=== PATIENT | female | born 1970 | race Caucasian/White ===

== ENCOUNTER 2016-11-28 15:56 | Emergency (ER) | payer OTHER ==
--- NOTE | 2016-11-28 17:09 | ED ORDER SUMMARY ---
..... Patient: SHERYL AVERY OrderSheet [facility] VisitID: [id number] [address] [place] [address] 46y, F Registration Date/Time: 11/28/2016 ORDER SHEET Weight: 60.7 kg Allergies: Vicodin GENERAL ORDERS: MEDICATION ORDERS: Vistaril IM 50 mg (NOW, Do not administer intravenously) (16:13 11/28/2016 Daryn Venegas) (16:29 EBsourav) IV FLUIDS: IV NS : initial bolus none -, then 1000 mL/hr for X1 (NOW) (16:12 11/28/2016 Daryn Venegas) (16:29 Matteo) Reglan IV 10 mg (NOW) (16:12 11/28/2016 Daryn Venegas) (16:29 Matteo) ORDER SHEET NOTES: [Electronically signed by Fabiola Grover (17:06 11/28/2016)] [Electronically signed by Alexander Macias Dr. (17:09 11/28/2016)] [Electronically locked/signed by Fabiola Grover (17:06 11/28/2016)]
--- NOTE | 2016-11-28 17:09 | ED MAR SUMMARY ---
..... Medication Administration Record [facility] [address] [place] [address] Patient: SHERYL AVERY Visit ID: [id number] 46y, F Weight: 60.7 kg Height/Length: 64 in BMI: 23 ALLERGIES: Vicodin Start 16:11/28/2016 Fabiola Grover, Medication Administered: IV NS (SALINE), Dose: IV Fluids, Bolus: 1000 mL wide open, Dispensed: 1000 mL bag, Site: #1 left AC. Medication Ordered: IV NS : initial bolus none -, then 1000 mL/hr for X1 (NOW). Given :11/28/2016 Fabiola Grover, Medication Administered: REGLAN [IVP] (METOCLOPRAMIDE HCL), Dose: 10 mg IVP over 1 minute(s), Site: #1 left AC. Medication Ordered: Reglan IV 10 mg (NOW). Given :11/28/2016 Fabiola Grover, Medication Administered: VISTARIL [IM] (HYDROXYZINE HCL), Dose: 50 mg IM. Medication Ordered: Vistaril IM 50 mg (NOW, Do not administer intravenously).
--- NOTE | 2016-11-28 17:09 | ED MED RECONCILIATION SUMMARY ---
Patient: SHERYL AVERY Medication Reconciliation Report [facility] VisitID: [id number] [address] [place] [address] 46y, F Registration Date/Time: 11/28/2016 Weight: 60.7 kg Height/Length: 64 in. BMI: 23.0 ALLERGIES: Vicodin The patient's Home Medications are listed below: NONE. The source(s) of the original Home Medication information: Not obtained. The following Medications were given to the patient in the Emergency Department: Reglan [IVP] IVP 10 mg, administered: 11/28/2016 4:29:00 PM IV NS IV Fluids bolus 1000 mL wide open, administered: 11/28/2016 4:29:00 PM Vistaril [IM] IM 50 mg, administered: 11/28/2016 4:29:00 PM The following Medications were prescribed to the patient: None.
--- NOTE | 2016-11-28 17:09 | ED MED RECONCILIATION SUMMARY ---
Patient: SHERYL AVERY Medication Reconciliation Report [facility] VisitID: [id number] [address] [place] [address] 46y, F Registration Date/Time: 11/28/2016 Weight: 60.7 kg Height/Length: 64 in. BMI: 23.0 ALLERGIES: Vicodin The patient's Home Medications are listed below: NONE. The source(s) of the original Home Medication information: Not obtained. The following Medications were given to the patient in the Emergency Department: Reglan [IVP] IVP 10 mg, administered: 11/28/2016 4:29:00 PM IV NS IV Fluids bolus 1000 mL wide open, administered: 11/28/2016 4:29:00 PM Vistaril [IM] IM 50 mg, administered: 11/28/2016 4:29:00 PM The following Medications were prescribed to the patient: None.
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
--- NOTE | 2016-11-28 17:09 | ED DISCHARGE INSTRUCTIONS ---
Patient: SHERYL AVERY Timym General Instructions [facility] VisitID: [id number] [address] [place] [address] 46y, F Registration Date/Time: 11/28/2016 Narcotic withdrawal (Electronically signed by Alexander Macias Dr. 11/28/2016 17:09)
--- NOTE | 2016-11-28 17:09 | ED ORDER SUMMARY ---
..... Patient: SHERYL AVERY OrderSheet [facility] VisitID: [id number] [address] [place] [address] 46y, F Registration Date/Time: 11/28/2016 ORDER SHEET Weight: 60.7 kg Allergies: Vicodin GENERAL ORDERS: MEDICATION ORDERS: Vistaril IM 50 mg (NOW, Do not administer intravenously) (16:13 11/28/2016 Daryn Venegas) (16:29 EBsourav) IV FLUIDS: IV NS : initial bolus none -, then 1000 mL/hr for X1 (NOW) (16:12 11/28/2016 Daryn Venegas) (16:29 Matteo) Reglan IV 10 mg (NOW) (16:12 11/28/2016 Daryn Venegas) (16:29 Matteo) ORDER SHEET NOTES: [Electronically signed by Fabiola Grover (17:06 11/28/2016)] [Electronically signed by Alexander Macias Dr. (17:09 11/28/2016)] [Electronically locked/signed by Fabiola Grover (17:06 11/28/2016)]
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
--- NOTE | 2016-11-28 17:09 | ED MAR SUMMARY ---
..... Medication Administration Record [facility] [address] [place] [address] Patient: SHERYL AVERY Visit ID: [id number] 46y, F Weight: 60.7 kg Height/Length: 64 in BMI: 23 ALLERGIES: Vicodin Start 16:11/28/2016 Fabiola Grover, Medication Administered: IV NS (SALINE), Dose: IV Fluids, Bolus: 1000 mL wide open, Dispensed: 1000 mL bag, Site: #1 left AC. Medication Ordered: IV NS : initial bolus none -, then 1000 mL/hr for X1 (NOW). Given :11/28/2016 Fabiola Grover, Medication Administered: REGLAN [IVP] (METOCLOPRAMIDE HCL), Dose: 10 mg IVP over 1 minute(s), Site: #1 left AC. Medication Ordered: Reglan IV 10 mg (NOW). Given :11/28/2016 Fabiola Grover, Medication Administered: VISTARIL [IM] (HYDROXYZINE HCL), Dose: 50 mg IM. Medication Ordered: Vistaril IM 50 mg (NOW, Do not administer intravenously).
--- NOTE | 2016-11-28 17:09 | ED DISCHARGE INSTRUCTIONS ---
Patient: SHERYL AVERY Timmy General Instructions [facility] VisitID: [id number] [address] [place] [address] 46y, F Registration Date/Time: 11/28/2016 Narcotic withdrawal (Electronically signed by Alexander Macias Dr. 11/28/2016 17:09)
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
== END 2016-11-28 17:00 | disposition home or self-care (01) ==
LOC: ED SRH 15:56
DX: F11.23 Opioid dependence with withdrawal (principal); R11.2 Nausea with vomiting, unspecified; Z90.710 Acquired absence of both cervix and uterus; Z88.5 Allergy status to narcotic agent

== ENCOUNTER 2017-01-07 11:52 | Emergency (ER) | payer OTHER ==
--- NOTE | 2017-01-07 14:20 | ED ORDER SUMMARY ---
..... Patient: SHERYL AVERY OrderSheet [facility] VisitID: [id number] [place] [address] 46y, F Registration Date/Time: 01/07/2017 ORDER SHEET Weight: 61.2 kg (stated) Allergies: None GENERAL ORDERS: CBC w Diff Urgent (13:01/07/2017 Jesse Venegas) (Ack 13:14 Quinton) (13:27 SStone R.N.) CMP Urgent (:01/07/2017 Jesse Venegas) (Ack 13:14 Quinton) (13:27 SStone R.N.) UA-Culture if indicated Urgent (:01/07/2017 Jesse Venegas) (Ack 13:14 Quinton) (13:27 SStone R.N.) Lipase Urgent (:01/07/2017 Jesse Venegas) (Ack 13:14 Quinton) (13:27 SStone R.N.) Pulse oximeter (13:01/07/2017 Jesse Venegas) (13:27 SStone R.N.) US Abdomen Limited (No) Urgent (13:01/07/2017 Jesse Venegas) (Ack 13:14 Quinton) Serum Quantitative Urgent (13:01/07/2017 Jesse Venegas) (Ack 13:14 Quinton) (13:27 SStone R.N.) MEDICATION ORDERS: GI Cocktail WHITE PO 30 mL (NOW) (13:01/07/2017 Jesse Venegas) (Ack 13:11 SStone R.N.) (13:26 SStone R.N.) IV FLUIDS: IV NS : initial bolus 1000 mL (1000 mL/hr), then none - for X1 (NOW) (13:01/07/2017 Jesse Venegas) (Ack 13:11 SStone R.N.) (13:27 SStone R.N.) Zofran IV 4 mg (NOW) (13:01/07/2017 Jesse Venegas) (Ack 13:11 SStone R.N.) (13:27 SStone R.N.) ORDER SHEET NOTES: [Electronically signed by Bianca Simpson R.N. (14:35 01/07/2017)] [Electronically signed by Ebenezer Tipton Dr. (10:34 01/12/2017)] [Electronically locked/signed by Bianca Simpson R.N. (14:35 01/07/2017)]
--- NOTE | 2017-01-07 14:20 | ED ORDER SUMMARY ---
..... Patient: SHERYL AVERY OrderSheet [facility] VisitID: [id number] [place] [address] 46y, F Registration Date/Time: 01/07/2017 ORDER SHEET Weight: 61.2 kg (stated) Allergies: None GENERAL ORDERS: CBC w Diff Urgent (13:01/07/2017 Jesse Venegas) (Ack 13:14 Quinton) (13:27 SStone R.N.) CMP Urgent (:01/07/2017 Jesse Venegas) (Ack 13:14 Quinton) (13:27 SStone R.N.) UA-Culture if indicated Urgent (:01/07/2017 Jesse Venegas) (Ack 13:14 Quinton) (13:27 SStone R.N.) Lipase Urgent (:01/07/2017 Jesse Venegas) (Ack 13:14 Quinton) (13:27 SStone R.N.) Pulse oximeter (13:01/07/2017 Jesse Venegas) (13:27 SStone R.N.) US Abdomen Limited (No) Urgent (13:01/07/2017 Jesse Venegas) (Ack 13:14 Quinton) Serum Quantitative Urgent (13:01/07/2017 Jesse Venegas) (Ack 13:14 Quinton) (13:27 SStone R.N.) MEDICATION ORDERS: GI Cocktail WHITE PO 30 mL (NOW) (13:01/07/2017 Jesse Venegas) (Ack 13:11 SStone R.N.) (13:26 SStone R.N.) IV FLUIDS: IV NS : initial bolus 1000 mL (1000 mL/hr), then none - for X1 (NOW) (13:01/07/2017 Jesse Venegas) (Ack 13:11 SStone R.N.) (13:27 SStone R.N.) Zofran IV 4 mg (NOW) (13:01/07/2017 Jesse Venegas) (Ack 13:11 SStone R.N.) (13:27 SStone R.N.) ORDER SHEET NOTES: [Electronically signed by Bianca Simpson R.N. (14:35 01/07/2017)] [Electronically signed by Ebenezer Tipton Dr. (10:34 01/12/2017)] [Electronically locked/signed by Bianca Simpson R.N. (14:35 01/07/2017)]
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
--- NOTE | 2017-01-07 14:20 | ED CLINICAL REPORT ---
Clinical Report - Physicians/Mid Levels [facility] [address] [place] [address] 01/07/2017 11:53 Patient: SHERYL AVERY Time Seen: 1307. Arrived- By private vehicle. Historian- patient. HISTORY OF PRESENT ILLNESS Chief Complaint: ABDOMINAL PAIN. This started past 4 days and is still present (staying the same). It was gradual in onset and has been constant and waxing/waning but is not gone now. At its maximum, severity described as severe. When seen in the E.D., severity described as severe. Modifying factors- (better with heroin worse without it). It is described as sharp and cramping. No radiation. It is described as located in the epigastric area. The patient has had nausea, loss of appetite, vomiting and diarrhea. No additional abdominal pain. (reports abscess to the left face for the past few days. hx of scalp infection. reports being off antibiotics for the past month.). No recent travel. Similar symptoms previously: None. Recent medical care: Not recently seen/assessed. REVIEW OF SYSTEMS No constipation, black stools, hematemesis or bloody stools. She has had skin rash. All systems otherwise negative, except as recorded above. PAST HISTORY See nurses notes. Medications: None. Allergies: None. SOCIAL HISTORY Smoker- current status unknown. Alcohol use. History of drug use. No recent travel. Is a local resident. ADDITIONAL NOTES The nursing notes have been reviewed. PHYSICAL EXAM Vital Signs: 01/07/2017 12:03 BP: 118/87. HR: 88. RR: 18. O2 saturation: 100%. Temp: 98.7 F. Pain level now: 7/10. Blood pressure normal. Oxygen saturation normal. Appearance: Alert. Oriented X3. No acute distress. Eyes: Pupils equal, round and reactive to light. Eyes normal inspection. ENT: Ears normal. Nose normal. Pharynx normal. Neck: Normal inspection. Neck supple. CVS: Normal heart rate and rhythm. Heart sounds normal. Pulses normal. Respiratory: No respiratory distress. Breath sounds normal. Chest nontender. Abdomen: Soft and nontender. No mass. (Hyperactive bowel sounds). Back: Normal inspection. Skin: Skin warm and dry. Normal skin color. No rash. Normal skin turgor. (except left face with small 1.5 cm area off cellulitis and indruation. no fluctuance. does not appear to be I & D easily.). Extremities: Extremities exhibit normal ROM. No lower extremity edema. LABS, X-RAYS, AND EKG Laboratory Tests: Serum Qualitative: (ROSI: 01/07/2017 13:20) ( [facility] 01/07[facility] 13:52) Final results Test Result Flag Units (Reference) , SERUM NEGATIVE CBC w Diff: (ROSI: 01/07/2017 13:20) ( [facility] 01/07/2017 13:32) Final results Test Result Flag Units (Reference) WHITE BLOOD COUNT 7.6 K/uL (4.5-11.5) RED BLOOD COUNT 4.90 M/uL (4.00-5.20) HEMOGLOBIN 14.1 gm/dL (12.0-16.0) HEMATOCRIT 42.5 % (36.0-46.0) MEAN CELL VOLUME 87 fL (80-100) MEAN CORPUSCULAR HGB 29 pg (26-34) MEAN CORPUSCULAR HGB CONC 33 g/dL (31-37) RED CELL DISTRIBUTION WIDTH 13.5 % (11.6-14.8) PLATELET COUNT 336 K/uL (150-400) NEUTROPHIL % 58.6 % (50-75) LYMPH % 33.0 % (25-40) MONO % 5.8 % (3-14) EOSINOPHIL % 1.9 % (0-4) BASOPHIL % 0.7 % (0-2) CMP: (ROSI: 01/07/2017 13:20) ( [facility] 01/07/2017 14:00) Final results Test Result Flag Units (Reference) GLUCOSE 83 mg/dL (70-110) BUN 7 mg/dL (7-18) CREATININE 0.8 mg/dL (0.6-1.3) Estimated GFR >60 mL/min This is a corrected result 01/07/17 1400:Estimated GFR previously reported as: 24.05 mL/min Estimated GFR- >60 mL/min This is a corrected result 01/07/17 1400:eGFR- Am previously reported as: 29.15mL/minNote: Persistent reduction over 3 months in eGFR<60 mL/min/1.73 m2 defines CKD. Patients with eGFR values>=60 mL/min/1.73 m2 may also have CKD if evidence ofpersistent proteinuria. Additional information may be foundat www.kidney.org. SODIUM 140 mmol/L (136-145) POTASSIUM 3.9 mmol/L (3.5-5.1) CHLORIDE 104 mmol/L (98-107) CARBON DIOXIDE 28 mmol/L (21-32) CALCIUM 9.2 mg/dL (8.5-10.1) TOTAL PROTEIN 7.5 g/dL (6.4-8.2) ALBUMIN 3.7 g/dL (3.3-5.0) BILIRUBIN, TOTAL 0.3 mg/dL (0.0-1.0) ALKALINE PHOSPHATASE 72 U/L (46-116) AST (SGOT) 10 L U/L (15-37) ALT (SGPT) 13 U/L (12-78) LIPASE 120 U/L (73-393) . PROGRESS AND PROCEDURES Course of Care: the patient is a pleasant 46-year-old female presenting for evaluation of abdominal pain. Appears to be related to opiate withdrawal. The patient is a nontender examination and hyperactive bowel sounds. Patient's symptom otology is also consistent with opioid withdrawal. Nonetheless, patient will be evaluated laboratory studies including urinalysis, chemistry profile, and liver function tests. Patient is agreeable to treatment plan. Patient will likely need treatment for the small abscess that still located on the right lower face. No evidence of deep or more sinister type of infection at this time. Appears to be a sequela of IV heroin use as well. Because of the location of the abscess, do not feel it would be kearney to drain the abscess at bedside secondary to cosmetic reasons. Recommended warm compresses with antibiotics and spontaneous drainage. The patient's laboratory studies were somewhat delayed from laboratory. Patient's creatinine was delayed and needed to be repeated several times because of the abnormal levels. I spoke to lab personally about this. They're currently working on the patient's creatinine. The patient's blood pressure citizen noted for the findings above. No acute abnormalities noted. Patient is resting in bed and in no acute distress. Symptoms had improved with the medications provided. Had discussion with patient in regards to opioid withdrawal. Encouraged patient to continue with the detox from opioids and expressed my concern with the patient in regards to starting any other illicit substance as a substitute for heroin. Recommended patient come clean from all of the illicit substances and avoid prescriptions. Patient reports that she does not want to be done anything else. The patient appears to be in good spirits and is motivated. Patient is a good chance of being clean and sober. Discussed the patient workup here in the emergency department, home care, follow-up, and return precautions. All questions have been answered. The patient expressed understanding of these instructions and was agreeable to them. CLINICAL IMPRESSION Acute epigastric abdominal pain. (acute). Vomiting with nausea. Diarrhea Facial cellulitis (right cheeck). Single superficial abscess to the face (right). INSTRUCTIONS Warnings: GENERAL WARNINGS: Return or contact your physician immediately if your condition worsens or changes unexpectedly, if not improving as expected, or if other problems arise. SPECIFICALLY, return if you develop pain, fever, vomiting, the inability to keep fluids down, blood in vomitus, blood in diarrhea, fainting or lightheadedness. Your Current Medications: CONTINUE TAKING THE FOLLOWING MEDICATIONS: None*. Prescription Medications: Zofran (orally disintegrating tablets) 4 mg: take 1 orally every 8 hours as needed for nausea and vomiting. Dispense ten (10). No refill. Substitution is permissible. (daily dose =) Pepcid 20 mg: take 1 orally every 12 hours as needed for indigestion, upset stomach or heartburn. Dispense twenty (20). No refills. Substitution is permissible. Cephalexin 500 mg: take 1 capsule orally every 8 hours for 10 days. No refill. Bactrim DS: take 1 tablet orally every 12 hours for 10 days. No refill. Substitution is not permissible. (disp 20 tabs) Follow-up: Return to the emergency department as needed. Follow up with your doctor in three days. Reason for referral: recheck today's concerns. Summary of care provided to patient via paper. Screening today revealed the patient's blood pressure to be in the normal range. The patient should follow up with a primary care provider for blood pressure management. Understanding of the discharge instructions verbalized by patient. (Electronically signed by Ebenezer Tipton Dr. 01/12/2017 10:34)
--- NOTE | 2017-01-07 14:42 | DIAGNOSTIC IMAGING REPORT ---
PROCEDURE: US ABDOMEN ULTRASOUND-LIMITED INDICATION: EPIGASTRIC ABDOMINAL PAIN TECHNIQUE: Purvis scale and color Doppler sonographic images of the abdomen were obtained without comparison. COMPARISON: None. FINDINGS: The liver is normal in size, contour, and echotexture. No mass or intrahepatic biliary dilatation. The gallbladder is normal without stones or sludge. The wall is normal thickness measuring 1.7 mm No pericholecystic fluid or Hood sign. The extrahepatic common duct is normal measuring 4.6 mm The visualized pancreas is normal without ductal dilatation or peripancreatic fluid collection. The abdominal aorta is normal in its course and caliber. The retrohepatic inferior vena cava is patent. There is appropriate hepatopetal flow in the portal vein. The right kidney measures in length. There is no perihepatic or perisplenic ascites. IMPRESSION: 1. Normal abdominal ultrasound.
--- NOTE | 2017-01-12 10:35 | ED MAR SUMMARY ---
..... Medication Administration Record [facility] [address] [place] [address] Patient: SHERYL AVERY Visit ID: [id number] [id number], F Weight: 61.2 kg Height/Length: 64 in BMI: 23.2 ALLERGIES: None Given 13:17 01/07/2017 Bianca Simpson R.N. Medication Administered: ZOFRAN [IVP] (ONDANSETRON HCL), Dose: 4 mg IVP over 2 minute(s), Site: #1 left AC. Medication Ordered: Zofran IV 4 mg (NOW). Given 13:26 01/07/2017 Bianca Simpson R.N. Medication Administered: GI COCKTAIL WHITE [PO] (SIMETHICONE), Dose: 50 mL Oral Suspension PO. Medication Ordered: GI Cocktail WHITE PO 30 mL (NOW). Start 13:27 01/07/2017 Bianca Simpson R.N. Medication Administered: IV NS (SALINE), Dose: IV Fluids over 1 hour(s), Rate: 1000 mL/hr, Bolus: 1000 mL wide open, Dispensed: 1000 mL bag, Site: #1 left AC. Medication Ordered: IV NS : initial bolus 1000 mL (1000 mL/hr), then none - for X1 (NOW).
--- NOTE | 2017-01-12 10:35 | ED DISCHARGE INSTRUCTIONS ---
Patient: SHERYL AVERY General Instructions Merged With [facility] VisitID: [id number] [place] [address] 46y, F Registration Date/Time: 01/07/2017 Acute epigastric abdominal pain. (acute). Vomiting with nausea. Diarrhea Facial cellulitis (right cheeck). Single superficial abscess to the face (right). INSTRUCTIONS Warnings: GENERAL WARNINGS: Return or contact your physician immediately if your condition worsens or changes unexpectedly, if not improving as expected, or if other problems arise. SPECIFICALLY, return if you develop pain, fever, vomiting, the inability to keep fluids down, blood in vomitus, blood in diarrhea, fainting or lightheadedness. Your Current Medications: CONTINUE TAKING THE FOLLOWING MEDICATIONS: None*. Prescription Medications: Zofran (orally disintegrating tablets) 4 mg: take 1 orally every 8 hours as needed for nausea and vomiting. Dispense ten (10). No refill. Substitution is permissible. (daily dose =) Pepcid 20 mg: take 1 orally every 12 hours as needed for indigestion, upset stomach or heartburn. Dispense twenty (20). No refills. Substitution is permissible. Cephalexin 500 mg: take 1 capsule orally every 8 hours for 10 days. No refill. Bactrim DS: take 1 tablet orally every 12 hours for 10 days. No refill. Substitution is not permissible. (disp 20 tabs) Follow-up: Return to the emergency department as needed. Follow up with your doctor in three days. Reason for referral: recheck today's concerns. Summary of care provided to patient via paper. Screening today revealed the patient's blood pressure to be in the normal range. The patient should follow up with a primary care provider for blood pressure management. Understanding of the discharge instructions verbalized by patient. ADDITIONAL INFORMATION Abdominal Pain, Unknown Cause (Female) The exact cause of your abdominal (stomach) pain is not certain. This does not mean that this is something to worry about, or the right tests were not done. Everyone likes to know the exact cause of the problem, but sometimes with abdominal pain, there is no clear-cut cause, and this could be a good thing. The good news is that your symptoms can be treated, and you will feel better. Your condition does not seem serious now; however, sometimes the signs of a serious problem may take more time to appear. For this reason,it is important for you to watch for any new symptoms, problems,or worsening of your condition. Over the next few days, the abdominal pain may come and go, or be continuous. Other common symptoms can include nausea and vomiting. Sometimes it can be difficult to tell if you feel nauseous, you may just feel bad and not associate that feeling with nausea. Constipation, diarrhea, and a fever may go along with the pain. The pain may continue even if treated correctly over the following days. Depending on how things go, sometimes the cause can become clear and may require further or different treatment. Additional evaluations, medications, or tests may be needed. Home care Your health care provider may prescribe medications for pain, symptoms, or an infection. Follow the health care provider's instructions for taking these medications. General care Rest until your next exam. No strenuous activities. Try to find positions that ease discomfort. A small pillow placed on the abdomen may help relieve pain. Something warm on your abdomen (such as a heating pad) may help, but be careful not to burn yourself. Diet Do not force yourself to eat, especially if having cramps, vomiting, or diarrhea. Water is important so you do not get dehydrated. Soup may also be good. Sports drinks may also help, especially if they are not too acidic. Make sure you don't drink sugary drinks as this can make things worse. Take liquids in small amounts. Do not guzzle them. Caffeine sometimes makes the pain and cramping worse. Avoid dairy products if you have vomiting or diarrhea. Don't eat large amounts at a time. Wait a few minutes between bites. Eat a diet low in fiber (called a low-residue diet). Foods allowed include refined breads, white rice, fruit and vegetable juices without pulp, tender meats. These foods will pass more easily through the intestine. Avoid whole-grain foods, whole fruits and vegetables, meats, seeds and nuts, fried or fatty foods, dairy, alcohol and spicy foods until your symptoms go away. Follow-up care Follow up with your health care provider as instructed, or if your pain does not begin to improve in the next 24 hours. When to seek medical care Seek prompt medical care if any of the following occur: Pain gets worse or moves to the right lower abdomen New or worsening vomiting or diarrhea Swelling of the abdomen Unable to pass stool for more than three days Fever of 100.4F (38C) or higher, or as directed by your healthcare provider. Blood in vomit or bowel movements (dark red or black color) Jaundice (yellow color of eyes and skin) Weakness, dizziness Chest, arm, back, neck or jaw pain Unexpected vaginal bleeding or missed period Call 911 Call emergency services if any of the following occur: Trouble breathing Confusion Fainting or loss of consciousness Rapid heart rate Seizure Vomiting [6Yr-Adult] Vomiting is a common symptom that may be due to different causes. These include gastroenteritis ("stomach flu"), food poisoning and gastritis. There are other more serious causes of vomiting which may be hard to diagnose early in the illness. Therefore, it is important to watch for the warning signs listed below. The main danger from repeated vomiting is dehydration. This is due to excess loss of water and minerals from the body. When this occurs, body fluids must be replaced. Home Care: If symptoms are severe, rest at home for the next 24 hours. You may use acetaminophen (Tylenol) or ibuprofen (Motrin, Advil) to control fever, unless another medicine was prescribed. [NOTE : If you have chronic liver or kidney disease or ever had a stomach ulcer or GI bleeding, talk with your doctor before using these medicines.] (Aspirin should never be used in anyone under 18 years of age who is ill with a fever. It may cause severe liver damage.) Avoid tobacco and alcohol use, which may worsen your symptoms. If medicines for vomiting were prescribed, take as directed. Once vomiting stops, then follow these guidelines: During The First 12-24 Hours follow the diet below: FRUIT JUICES: Apple, grape juice, clear fruit drinks, and electrolyte replacement drinks. BEVERAGES: Soft drinks without caffeine; mineral water (plain or flavored), decaffeinated tea and coffee. SOUPS: Clear broth, consomm and bouillon DESSERTS: Plain gelatin, popsicles and fruit juice bars. As you feel better, you may add 6-8 ounces of yogurt per day. During The Next 24 Hours you may add the following to the above: Hot cereal, plain toast, bread, rolls, crackers Plain noodles, rice, mashed potatoes, chicken noodle or rice soup Unsweetened canned fruit (avoid pineapple), bananas Limit caffeine and chocolate. No spices or seasonings except salt. During The Next 24 Hours Gradually resume a normal diet, as you feel better and your symptoms lessen. Follow Up with your doctor as advised if you are not improving over the next 2-3 days. Get Prompt Medical Attention if any of the following occur: Constant right-sided lower abdominal pain or increasing general abdominal pain Continued vomiting (unable to keep liquids down) for 24 hours Frequent diarrhea (more than 5 times a day); blood (red or black color) or mucus in diarrhea Reduced urine output or extreme thirst Weakness, dizziness or fainting Unusually drowsy or confused Fever of 100.4F (38C) oral or higher, not better with fever medication Yellow color of the eyes or skin Diarrhea, Uncertain Cause (Adult, Report Pending) Diarrhea has several possible causes. Commonstomach fluis caused by a virus. Food poisoning, bacteria or parasites are other causes for diarrhea. Only diarrhea caused by bacteria or parasites requires treatment with an antibiotic. Diarrhea from a virus or food poisoning improves with simple home treatment. A stool sample is needed to make the diagnosis of an infection with bacteria or parasites. Up to three stool specimens may be required to diagnose This may take up to two days to get the result. It may be necessary to wait until the stool test is complete to make the diagnosis and select the best antibiotic to prescribe. Home Care: If symptoms are severe, rest at home for the next 24 hours or until you are feeling better. You may use acetaminophen (Tylenol) or ibuprofen (Motrin, Advil) to control fever, unless another medicine was prescribed. [NOTE: If you have chronic liver or kidney disease or ever had a stomach ulcer or GI bleeding, talk with your doctor before using these medicines.] (Aspirin should never be used in anyone under 18 years of age who is ill with a fever. It may cause severe liver damage.) Avoid tobacco, caffeine and alcohol, which may worsen your symptoms. If anti-diarrhea medicine was prescribed, take this only as directed. Sometimes anti-diarrhea medicine can make your condition worse if the cause is an infectious diarrhea. Therefore, anti-diarrhea medicine should not be taken for this condition unless advised by your doctor. During The First 12-24 Hours follow the diet below: BEVERAGES: Sport drinks like Gatorade, soft drinks without caffeine; jackeline tova, mineral water (plain or flavored), decaffeinated tea and coffee. SOUPS: Clear broth, consomm and bouillon DESSERTS: Plain gelatin (Jell-O), popsicles and fruit juice bars. During The Next 24 Hours you may add the following to the above: Hot cereal, plain toast, bread, rolls, crackers Plain noodles, rice, mashed potatoes, chicken noodle or rice soup Unsweetened canned fruit (avoid pineapple), bananas Limit fat intake to less than 15 grams per day by avoiding margarine, butter, oils, mayonnaise, sauces, gravies, fried foods, peanut butter, meat, poultry and fish. Limit fiber; avoid raw or cooked vegetables, fresh fruits (except bananas) and bran cereals. Limit caffeine and chocolate. No spices or seasonings except salt. During The Next 24 Hours Gradually resume a normal diet, as you feel better and your symptoms lessen. Follow Up with your doctor or as advised if you are not improving over the next two days. If you were asked to bring a specimen from home, bring the sample on the day of collection. You may call in 2 days (or as directed) for the results. Get Prompt Medical Attention if any of the following occur: Increasing abdominal pain or constant lower right abdominal pain Continued vomiting (unable to keep liquids down) Frequent diarrhea (more than 5 times a day) Blood in vomit or stool (black or red color) Reduced oral intake Dark urine, reduced urine output Weakness, dizziness, fainting Drowsiness, confusion, stiff neck or seizure Fever of 100.4F (38C) oral or higher, not better with fever medication New rash Abscess (Antibiotic Treatment Only) An abscess (sometimes called a boil) occurs when bacteria get trapped under the skin and begin to grow. Pus forms inside the abscess as the body responds to the bacteria. An abscess can occur with an insect bite, ingrown hair, blocked oil gland, pimple, cyst, or puncture wound. In the early stages, redness and tenderness are the only symptoms. Sometimes, this stage can be treated with antibiotics alone. If the abscess does not respond to antibiotic treatment, it will need to be drained with a small cut, under local anesthesia. Home care The following will help you care for your abscess at home: Soak the wound in hot water or apply hot packs (small towel soaked in hot water) to the area for 20 minutes at a time. Do this three to four times a day. Apply antibiotic cream or ointment onto the skin 3-4 times a day, unless something else was prescribed. Some ointments include an antibiotic plus a local pain reliever. If your doctor prescribed antibiotics, do not stop taking this medication until you have finished the prescribed course or the doctor tells you to stop. You may use an [id number] pain medication to control pain, unless another pain medicine was prescribed. If you have chronic liver or kidney disease or ever had a stomach ulcer or GI bleeding, talk with your doctor before using these any of these. Follow-up care Follow up with your health care provider as advised by our staff. Look at your wound each day for the signs of worsening infection listed below. When to seek medical care Get prompt medical attention if any of the following occur: An increase in redness or swelling Red streaks in the skin leading away from the abscess An increase in local pain or swelling Fever of 100.4F (38C) or higher, or as directed by your health care provider Pus or fluid coming from the abscess Cellulitis You have an infection of the skin known as cellulitis. This usually starts with a scrape, cut, insect bite, blister or other opening in the skin which becomes infected. This is a serious condition. It must be watched closely to be sure the infection is not spreading. With antibiotic treatment, the size of the red area will gradually shrink in size until the skin returns to normal. This will take 7-10 days. The red area should never increase in size once the antibiotic medicine has been started. Occasionally, an infection will be resistant to one antibiotic and another one will have to be used. Home Care: 1) Limit the use of the affected part, since excess movement can cause the infection to spread. 2) If the infection is on your leg, walk as little as possible during the first few days of the treatment. Keep your leg elevated while sitting. This will reduce swelling. 3) Take all of the antibiotic medicine exactly as directed until it is gone. Be careful not to miss any doses, especially during the first seven days. Follow Up with your doctor or this facility as directed. Check the infected area daily for the warning signs listed below. Get Prompt Medical Attention if any of the following occur: -- Spreading area of redness -- Increasing swelling or pain -- Appearance of pus or drainage -- Fever over 100.4 F (38.0 C) oral, or over 101.4 F (38.6 C) rectal, after two days on antibiotics Facial Cellulitis You have an infection of the skin known as cellulitis. This usually starts with a scrape, cut or insect bite which becomes infected. It may also occur from an infected oil gland (pimple) or hair follicle. This can be a serious condition and must be watched closely to be sure the infection is not spreading. With antibiotic treatment, the size of the red area will gradually shrink in size until the skin returns to normal. This will take 7-10 days. The red area should never increase in size once the antibiotic medicine has been started. Occasionally, an infection will be resistant to one antibiotic and another one will have to be used. Home Care: 1) Take all of the antibiotic medicine exactly as prescribed until it is gone. Be careful not to miss any doses, especially during the first few days. 2) A cool compress (face cloth soaked in cool water) applied to the face may help with the swelling and pain. 3) You may use acetaminophen (Tylenol) or ibuprofen (Motrin, Advil) to control pain, unless another medicine was prescribed. [ NOTE : If you have chronic liver or kidney disease or ever had a stomach ulcer or GI bleeding, talk with your doctor before using these medicines.] (Aspirin should never be used in anyone under 18 years of age who is ill with a fever. It may cause severe liver damage.) Follow Up with your doctor or this facility as directed. Check the infected area daily for the warning signs listed below. Get Prompt Medical Attention if any of the following occur: -- Increasing area of redness, swelling or pain -- Pus or fluid drainage from the skin or the eye -- Fever of 100.5 F (38 C) oral or 101.5 F (38.6 C) rectal for more than two days on antibiotics -- Eyelid swells shut -- Increasing headache or neck pain -- Unusual drowsiness or confusion -- Convulsion (seizure) Ondansetron Oral disintegrating tablet What is this medicine? ONDANSETRON (on KERRI se dia) is used to treat nausea and vomiting caused by chemotherapy. It is also used to prevent or treat nausea and vomiting after surgery. How should I use this medicine? These tablets are made to dissolve in the mouth. Do not try to push the tablet through the foil backing. With dry hands, peel away the foil backing and gently remove the tablet. Place the tablet in the mouth and allow it to dissolve, then swallow. While you may take these tablets with water, it is not necessary to do so. Talk to your surgical training specialist regarding the use of this medicine in children. Special care may be needed. What side effects may I notice from receiving this medicine? Side effects that you should report to your doctor or health professional healthcare representative as soon as possible: allergic reactions like skin rash, itching or hives, swelling of the face, lips, or tongue breathing problems dizziness fast or irregular heartbeat feeling faint or lightheaded, falls fever and chills swelling of the hands and feet tightness in the chest Side effects that usually do not require medical attention (report to your doctor or health professional healthcare representative if they continue or are bothersome): constipation or diarrhea headache What may interact with this medicine? Do not take this medicine with any of the following medications: -apomorphine -cisapride -dofetilide -dronedarone -pimozide -thioridazine -ziprasidone This medicine may also interact with the following medications: -carbamazepine -phenytoin -rifampicin -tramadol -other medicines that prolong the QT interval (cause an abnormal heart rhythm) What if I miss a dose? If you miss a dose, take it as soon as you can. If it is almost time for your next dose, take only that dose. Do not take double or extra doses. Where should I keep my medicine? Keep out of the reach of children. Store between 2 and 30 degrees C (36 and 86 degrees F). Throw away any unused medicine after the expiration date. What should I tell my health care provider before I take this medicine? They need to know if you have any of these conditions: heart disease history of irregular heartbeat liver disease low levels of magnesium or potassium in the blood an unusual or allergic reaction to ondansetron, granisetron, other medicines, foods, dyes, or preservatives or trying to get breast-feeding What should I watch for while using this medicine? Check with your doctor or health professional healthcare representative as soon as you can if you have any sign of an allergic reaction. Famotidine Oral tablet What is this medicine? FAMOTIDINE (angelica velasquez) is a type of antihistamine that blocks the release of stomach acid. It is used to treat stomach or intestinal ulcers. It can also relieve heartburn from acid reflux. How should I use this medicine? Take this medicine by mouth with a glass of water. Follow the directions on the prescription label. If you only take this medicine once a day, take it at bedtime. Take your doses at regular intervals. Do not take your medicine more often than directed. Talk to your surgical training specialist regarding the use of this medicine in children. Special care may be needed. What side effects may I notice from receiving this medicine? Side effects that you should report to your doctor or health professional healthcare representative as soon as possible: agitation, nervousness confusion hallucinations skin rash, itching Side effects that usually do not require medical attention (report to your doctor or health professional healthcare representative if they continue or are bothersome): constipation diarrhea dizziness headache What may interact with this medicine? delavirdine itraconazole ketoconazole What if I miss a dose? If you miss a dose, take it as soon as you can. If it is almost time for your next dose, take only that dose. Do not take double or extra doses. Where should I keep my medicine? Keep out of the reach of children. Store at room temperature between 15 and 30 degrees C (59 and 86 degrees F). Do not freeze. Throw away any unused medicine after the expiration date. What should I tell my health care provider before I take this medicine? They need to know if you have any of these conditions: kidney or liver disease trouble swallowing an unusual or allergic reaction to famotidine, other medicines, foods, dyes, or preservatives or trying to get breast-feeding What should I watch for while using this medicine? Tell your doctor or health professional healthcare representative if your condition does not start to get better or if it gets worse. Finish the full course of tablets prescribed, even if you feel better. Do not take with aspirin, ibuprofen or other antiinflammatory medicines. These can make your condition worse. Do not smoke cigarettes or drink alcohol. These cause irritation in your stomach and can increase the time it will take for ulcers to heal. If you get black, tarry stools or vomit up what looks like coffee grounds, call your doctor or health professional healthcare representative at once. You may have a bleeding ulcer. Cephalexin Monohydrate Oral tablet What is this medicine? CEPHALEXIN (sef a PRIETO in) is a cephalosporin antibiotic. It is used to treat certain kinds of bacterial infections It will not work for colds, flu, or other viral infections. How should I use this medicine? Take this medicine by mouth with a full glass of water. Follow the directions on the prescription label. This medicine can be taken with or without food. Take your medicine at regular intervals. Do not take your medicine more often than directed. Take all of your medicine as directed even if you think you are better. Do not skip doses or stop your medicine early. Talk to your surgical training specialist regarding the use of this medicine in children. While this drug may be prescribed for selected conditions, precautions do apply. What side effects may I notice from receiving this medicine? Side effects that you should report to your doctor or health professional healthcare representative as soon as possible: allergic reactions like skin rash, itching or hives, swelling of the face, lips, or tongue breathing problems pain or trouble passing urine redness, blistering, peeling or loosening of the skin, including inside the mouth severe or watery diarrhea unusually weak or tired yellowing of the eyes, skin Side effects that usually do not require medical attention (report to your doctor or health professional healthcare representative if they continue or are bothersome): gas or heartburn genital or anal irritation headache joint or muscle pain nausea, vomiting What may interact with this medicine? probenecid some other antibiotics What if I miss a dose? If you miss a dose, take it as soon as you can. If it is almost time for your next dose, take only that dose. Do not take double or extra doses. There should be at least 4 to 6 hours between doses. Where should I keep my medicine? Keep out of the reach of children. Store at room temperature between 59 and 86 degrees F (15 and 30 degrees C). Throw away any unused medicine after the expiration date. What should I tell my health care provider before I take this medicine? They need to know if you have any of these conditions: kidney disease stomach or intestine problems, especially colitis an unusual or allergic reaction to cephalexin, other cephalosporins, penicillins, other antibiotics, medicines, foods, dyes or preservatives or trying to get breast-feeding What should I watch for while using this medicine? Tell your doctor or health professional healthcare representative if your symptoms do not begin to improve in a few days. Do not treat diarrhea with over the counter products. Contact your doctor if you have diarrhea that lasts more than 2 days or if it is severe and watery. If you have diabetes, you may get a false-positive result for sugar in your urine. Check with your doctor or health professional healthcare representative. Sulfamethoxazole, Trimethoprim Oral tablet What is this medicine? SULFAMETHOXAZOLE; TRIMETHOPRIM or SMX-TMP (suhl fuh meth OK gilles zohl; trye METH oh prim) is a combination of a sulfonamide antibiotic and a second antibiotic, trimethoprim. It is used to treat or prevent certain kinds of bacterial infections. It will not work for colds, flu, or other viral infections. How should I use this medicine? Take this medicine by mouth with a full glass of water. Follow the directions on the prescription label. Take your medicine at regular intervals. Do not take it more often than directed. Do not skip doses or stop your medicine early. Talk to your surgical training specialist regarding the use of this medicine in children. Special care may be needed. This medicine has been used in children as young as 2 months of age. What side effects may I notice from receiving this medicine? Side effects that you should report to your doctor or health professional healthcare representative as soon as possible: allergic reactions like skin rash or hives, swelling of the face, lips, or tongue breathing problems fever or chills, sore throat irregular heartbeat, chest pain joint or muscle pain pain or difficulty passing urine red pinpoint spots on skin redness, blistering, peeling or loosening of the skin, including inside the mouth unusual bleeding or bruising unusually weak or tired yellowing of the eyes or skin Side effects that usually do not require medical attention (report to your doctor or health professional healthcare representative if they continue or are bothersome): diarrhea dizziness headache loss of appetite nausea, vomiting nervousness What may interact with this medicine? Do not take this medicine with any of the following medications: aminobenzoate potassium dofetilide metronidazole This medicine may also interact with the following medications: KAYLI inhibitors like benazepril, enalapril, lisinopril, and ramipril cyclosporine digoxin diuretics indomethacin medicines for diabetes methenamine methotrexate phenytoin potassium supplements pyrimethamine sulfinpyrazone tricyclic antidepressants warfarin What if I miss a dose? If you miss a dose, take it as soon as you can. If it is almost time for your next dose, take only that dose. Do not take double or extra doses. Where should I keep my medicine? Keep out of the reach of children. Store at room temperature between 20 to 25 degrees C (68 to 77 degrees F). Protect from light. Throw away any unused medicine after the expiration date. What should I tell my health care provider before I take this medicine? They need to know if you have any of these conditions: anemia asthma being treated with anticonvulsants if you frequently drink alcohol containing drinks kidney disease liver disease low level of folic acid or [id number] dehydrogenase poor nutrition or malabsorption porphyria severe allergies thyroid disorder an unusual or allergic reaction to sulfamethoxazole, trimethoprim, sulfa drugs, other medicines, foods, dyes, or preservatives or trying to get breast-feeding What should I watch for while using this medicine? Tell your doctor or health professional healthcare representative if your symptoms do not improve. Drink several glasses of water a day to reduce the risk of kidney problems. Do not treat diarrhea with over the counter products. Contact your doctor if you have diarrhea that lasts more than 2 days or if it is severe and watery. This medicine can make you more sensitive to the sun. Keep out of the sun. If you cannot avoid being in the sun, wear protective clothing and use a sunscreen. Do not use sun lamps or tanning beds/booths. You have been given the following additional information: Abdominal Pain, Unknown Cause, (Female) Vomiting (6Y-Adult) Diarrhea, Unk Cause (Adult) Report Pendg Abscess, Antiobiotic Treatment Only Cellulitis Cellulitis, Facial Ondansetron Oral disintegrating tablet Famotidine Oral tablet Cephalexin Monohydrate Oral tablet Sulfamethoxazole, Trimethoprim Oral tablet (Electronically signed by Ebenezer Tipton Dr. 01/12/2017 10:34)
--- NOTE | 2017-01-12 10:35 | ED MED RECONCILIATION SUMMARY ---
Patient: SHERYL AVERY Medication Reconciliation Report [facility] VisitID: [id number] [place] [address] 46y, F Registration Date/Time: 01/07/2017 Weight: 61.2 kg Height/Length: 64 in. BMI: 23.2 ALLERGIES: None The patient's Home Medications are listed below: NONE. The source(s) of the original Home Medication information: patient The following Medications were given to the patient in the Emergency Department: GI COCKTAIL WHITE [PO] PO 50 mL, administered: 01/07/2017 1:26:00 PM Zofran [IVP] IVP 4 mg, administered: 01/07/2017 1:17:00 PM IV NS IV Fluids bolus 1000 mL wide open, then 1000 mL/hr, administered: 01/07/2017 1:27:00 PM The following Medications were prescribed to the patient: Zofran (orally disintegrating tablets) 4 mg: take 1 orally every 8 hours as needed for nausea and vomiting. Dispense ten (10). No refill. Substitution is permissible.(daily dose =) -- Ebenezer Tipton Dr. Pepcid 20 mg: take 1 orally every 12 hours as needed for indigestion, upset stomach or heartburn. Dispense twenty (20). No refills. Substitution is permissible. -- Ebenezer Tipton Dr. Cephalexin 500 mg: take 1 capsule orally every 8 hours for 10 days. No refill. -- Ebenezer Tipton Dr. Bactrim DS: take 1 tablet orally every 12 hours for 10 days. No refill. Substitution is not permissible.(disp 20 tabs) -- Ebenezer Tipton Dr.
--- NOTE | 2017-01-12 10:35 | ED MED RECONCILIATION SUMMARY ---
Patient: SHERYL AVERY Medication Reconciliation Report [facility] VisitID: [id number] [place] [address] 46y, F Registration Date/Time: 01/07/2017 Weight: 61.2 kg Height/Length: 64 in. BMI: 23.2 ALLERGIES: None The patient's Home Medications are listed below: NONE. The source(s) of the original Home Medication information: patient The following Medications were given to the patient in the Emergency Department: GI COCKTAIL WHITE [PO] PO 50 mL, administered: 01/07/2017 1:26:00 PM Zofran [IVP] IVP 4 mg, administered: 01/07/2017 1:17:00 PM IV NS IV Fluids bolus 1000 mL wide open, then 1000 mL/hr, administered: 01/07/2017 1:27:00 PM The following Medications were prescribed to the patient: Zofran (orally disintegrating tablets) 4 mg: take 1 orally every 8 hours as needed for nausea and vomiting. Dispense ten (10). No refill. Substitution is permissible.(daily dose =) -- Ebenezer Tipton Dr. Pepcid 20 mg: take 1 orally every 12 hours as needed for indigestion, upset stomach or heartburn. Dispense twenty (20). No refills. Substitution is permissible. -- Ebenezer Tipton Dr. Cephalexin 500 mg: take 1 capsule orally every 8 hours for 10 days. No refill. -- Ebenezer Tipton Dr. Bactrim DS: take 1 tablet orally every 12 hours for 10 days. No refill. Substitution is not permissible.(disp 20 tabs) -- Ebenezer Tipton Dr.
--- NOTE | 2017-01-12 10:35 | ED MAR SUMMARY ---
..... Medication Administration Record [facility] [address] [place] [address] Patient: SHERYL AVERY Visit ID: [id number] 46y, F Weight: 61.2 kg Height/Length: 64 in BMI: 23.2 ALLERGIES: None Given 13:17 01/07/2017 Bianca Simpson R.N. Medication Administered: ZOFRAN [IVP] (ONDANSETRON HCL), Dose: 4 mg IVP over 2 minute(s), Site: #1 left AC. Medication Ordered: Zofran IV 4 mg (NOW). Given 13:26 01/07/2017 Bianca Simpson R.N. Medication Administered: GI COCKTAIL WHITE [PO] (SIMETHICONE), Dose: 50 mL Oral Suspension PO. Medication Ordered: GI Cocktail WHITE PO 30 mL (NOW). Start 13:27 01/07/2017 Bianca Simpson R.N. Medication Administered: IV NS (SALINE), Dose: IV Fluids over 1 hour(s), Rate: 1000 mL/hr, Bolus: 1000 mL wide open, Dispensed: 1000 mL bag, Site: #1 left AC. Medication Ordered: IV NS : initial bolus 1000 mL (1000 mL/hr), then none - for X1 (NOW).
== END 2017-01-07 14:30 | disposition home or self-care (01) ==
LOC: ED SRH 11:52
DX: R10.13 Epigastric pain (principal); R11.2 Nausea with vomiting, unspecified; L03.211 Cellulitis of face; L02.01 Cutaneous abscess of face; R19.7 Diarrhea, unspecified; F11.10 Opioid abuse, uncomplicated
CPT/HCPCS: 90100; 92235; 95059; 98428

== ENCOUNTER 2017-03-29 22:04 | Emergency (ER) | payer OTHER ==
--- NOTE | 2017-03-29 23:33 | ED CLINICAL REPORT ---
Clinical Report - Physicians/Mid Levels [facility] [address] [place] [address] 03/29/2017 22:05 Patient: SHERYL AVERY Time Seen: 23:31 Mar 29 2017. Arrived- By private vehicle. Historian- patient. CPT: ER phys charges level 3 (#020054). HISTORY OF PRESENT ILLNESS Chief Complaint: SKIN RASH. This started 2 years [employer] SAL[employer]; worms and parasites. Can grab with pliers. One in eye . Used to be on hands and now on sclap. Meth and heroin use heavily in past and clean now for 3 months. It is described as itchy and painful. It has been located on the scalp. A possible cause has been identified. Similar symptoms previously: Recent medical care: The patient was seen recently in a clinic. Seen for similar symptoms. Evaluation/treatment- Dermatology referral. REVIEW OF SYSTEMS No fever, chills, sore throat, cough or difficulty breathing. No hoarseness, chest pain, abdominal pain, nausea or joint pain. No vomiting. All systems otherwise negative, except as recorded above. PAST HISTORY Facial Cellulitis. Diarrhea. Abdominal Pain. Headache. Migraine Headache. Vomiting. Narcotic Withdrawal. Gastritis. Substance Abuse. Ankle Fracture. Back Pain. Abscess. Conjunctivitis. Anxiety Reaction. Impetigo. Concussion. Otitis Externa. Nasal Fracture. Carpal Tunnel Syndrome. Depression. - ADDITIONAL SURGERIES: Fracture Repair. Hysterectomy. Medications: LaMICtal Oral. Effexor XR Oral. Allergies: None. SOCIAL HISTORY Heavy tobacco smoker (cigarette)- less than 1 pack per day. History of drug use. Is a recovering addict. No alcohol use. ADDITIONAL NOTES The nursing notes have been reviewed. PHYSICAL EXAM Vital Signs: 03/29/2017 22:11 BP: 135/78. HR: 103. RR: 18. O2 saturation: 97%. Temp: 98.2 F. Pain level now: 2/10. Appearance: Alert. Anxious. Eyes: Pupils equal, round and reactive to light. Conjunctivae and eyelids normal. ENT: Ears normal. Nose normal. Pharynx normal. Neck: Neck supple. CVS: Normal heart rate and rhythm. Heart sounds normal. Respiratory: No respiratory distress. Breath sounds normal. Chest nontender. Abdomen: Nontender. Skin: Skin warm. No tender indurated area. No cellulitis. Rash present on the scalp (3 cm in diameter area over the vertex of [place] scalp where hair has been removed. There is mild crusting but no erythema or evidence of infection. No FB or parasite infestation observed.). No abscess. Extremities: Normal external inspection. Extremities nontender. Neuro: Oriented X 3. No motor deficit. No sensory deficit. PROGRESS AND PROCEDURES Course of Care: Pt notes she has seen worms sticking out of her fingers , face and scalp. That she could grab them if she had pliers. Pt insists that she wants the involved part of the scalp cut out today. I refused to do this. 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 Pt states she can see these worms today on the scalp but there is nothing there on exam. Pt has self inflicted abrasions over the scalp. Pt says she has a dermatology appointment referral. This will confirm, most likely , that there is no other process going on. Patient/family counseled. Disposition: Discharged. Condition: stable. CLINICAL IMPRESSION Substance abuse problems: abuse of methamphetamine. Recurrent scalp lesions. INSTRUCTIONS Warnings: Further evaluation is necessary. Prescription Medications: Hydrocortisone 2.5% cream: apply to affected areas four times daily as needed for itching or rash. Dispense twenty (20) grams. No refills. Substitution is permissible. Bactrim DS 800 mg / 160 mg: Take 1 tablet orally every 12 hours for 7 days. Dispense fourteen (14). No refills. Substitution is permissible. Follow-up: Follow up with a galley boy. Call for the next available appointment. Understanding of the discharge instructions verbalized by patient. (Electronically signed by Jfe Orellana MD 03/31/2017 8:59)
--- NOTE | 2017-03-29 23:33 | ED CLINICAL REPORT ---
Clinical Report - Physicians/Mid Levels [facility] [address] [place] [address] 03/29/2017 22:05 Patient: SHERYL AVERY Time Seen: 23:31 Mar 29 2017. Arrived- By private vehicle. Historian- patient. CPT: ER phys charges level 3 (#[id number]). HISTORY OF PRESENT ILLNESS Chief Complaint: SKIN RASH. 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 Can grab with pliers. One in eye . Used to be on hands and now on sclap. Meth and heroin use heavily in past and clean now for 3 months. It is described as itchy and painful. It has been located on the scalp. A possible cause has been identified. Similar symptoms previously: Recent medical care: The patient was seen recently in a clinic. Seen for similar symptoms. Evaluation/treatment- Dermatology referral. REVIEW OF SYSTEMS No fever, chills, sore throat, cough or difficulty breathing. No hoarseness, chest pain, abdominal pain, nausea or joint pain. No vomiting. All systems otherwise negative, except as recorded above. PAST HISTORY Facial Cellulitis. Diarrhea. Abdominal Pain. Headache. Migraine Headache. Vomiting. Narcotic Withdrawal. Gastritis. Substance Abuse. Ankle Fracture. Back Pain. Abscess. Conjunctivitis. Anxiety Reaction. Impetigo. Concussion. Otitis Externa. Nasal Fracture. Carpal Tunnel Syndrome. Depression. - ADDITIONAL SURGERIES: Fracture Repair. Hysterectomy. Medications: LaMICtal Oral. Effexor XR Oral. Allergies: None. SOCIAL HISTORY Heavy tobacco smoker (cigarette)- less than 1 pack per day. History of drug use. Is a recovering addict. No alcohol use. ADDITIONAL NOTES The nursing notes have been reviewed. PHYSICAL EXAM Vital Signs: 03/29/2017 22:11 BP: 135/78. HR: 103. RR: 18. O2 saturation: 97%. Temp: 98.2 F. Pain level now: 2/10. Appearance: Alert. Anxious. Eyes: Pupils equal, round and reactive to light. Conjunctivae and eyelids normal. ENT: Ears normal. Nose normal. Pharynx normal. Neck: Neck supple. CVS: Normal heart rate and rhythm. Heart sounds normal. Respiratory: No respiratory distress. Breath sounds normal. Chest nontender. Abdomen: Nontender. Skin: Skin warm. No tender indurated area. No cellulitis. Rash present on the scalp (3 cm in diameter area over the vertex of [place] scalp where hair has been removed. There is mild crusting but no erythema or evidence of infection. No FB or parasite infestation observed.). No abscess. Extremities: Normal external inspection. Extremities nontender. Neuro: Oriented X 3. No motor deficit. No sensory deficit. PROGRESS AND PROCEDURES Course of Care: Pt notes she has seen worms sticking out of her fingers , face and scalp. That she could grab them if she had pliers. Pt insists that she wants the involved part of the scalp cut out today. I refused to do this. 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 Pt states she can see these worms today on the scalp but there is nothing there on exam. Pt has self inflicted abrasions over the scalp. Pt says she has a dermatology appointment referral. This will confirm, most likely , that there is no other process going on. Patient/family counseled. Disposition: Discharged. Condition: stable. CLINICAL IMPRESSION Substance abuse problems: abuse of methamphetamine. Recurrent scalp lesions. INSTRUCTIONS Warnings: Further evaluation is necessary. Prescription Medications: Hydrocortisone 2.5% cream: apply to affected areas four times daily as needed for itching or rash. Dispense twenty (20) grams. No refills. Substitution is permissible. Bactrim DS 800 mg / 160 mg: Take 1 tablet orally every 12 hours for 7 days. Dispense fourteen (14). No refills. Substitution is permissible. Follow-up: Follow up with a cad specialist. Call for the next available appointment. Understanding of the discharge instructions verbalized by patient. (Electronically signed by Jef Orellana MD 03/31/2017 8:59)
--- NOTE | 2017-03-29 23:33 | ED NURSING NOTES ---
Clinical Report - Nurses [facility] [address] [place] [address] 03/29/2017 22:05 Patient: SHERYL AVERY TRIAGE Triage time 22:2016. Acuity: LEVEL 4. Chief Complaint: SKIN RASH and SKIN LESION and . two years ago, patient thinks there are worms in her scalp. 22:17 03/29/17. SEPSIS SCREEN: Sepsis Screen. Negative (no infection suspected/documented). PAU COMA SCORE: [place] Coma Scale: 15- eyes open spontaneously (4); best verbal response- oriented x 4 (5); best motor response- obeys commands (6). --22:17 Maria Del Carmen Fatima R.N. 22:11 03/29/17. BP: 135/78 (regular adult cuff) taken on the left arm, while sitting. HR: 103. RR: 18. O2 saturation: 97% on room air. Temp: 98.2 F (oral). Pain level now: 11/20. --22:17 Maria Del Carmen Fatima R.N. Weight: 61.2 kg stated. Height/Length: 64 inches Per Patient. BMI: 23.2. --22:14 Maria Del Carmen Fatima R.N. Medications Effexor XR Oral. --22:13 Maria Del Carmen Fatima R.N. LaMICtal Oral. --22:13 Maria Del Carmen Fatima R.N. Allergies None. --22:12 Maria Del Carmen Fatima R.N. History Arrived walking. Primary physician (DR Rinaldi). Reported as located on the scalp (cranium). Onset. (two years). It is described as itchy and painful. She has had itching. 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 PAST MEDICAL HX: The patient has had a hysterectomy. SOCIAL HX: Current every day light tobacco smoker- less than 1/2 a pack per day. No alcohol use or drug use. No infectious disease exposure. ABUSE ASSESSMENT: No report of abuse. SELF HARM ASSESSMENT: A self harm assessment was performed. The patient answered "no" to the question "Do you have thoughts of harming or killing yourself?" and "Have you recently had thoughts about harming or killing others?". --22:17 Maria Del Carmen Fatima R.N. PROBLEMS: Facial Cellulitis. Diarrhea. Abdominal Pain. Headache. Migraine Headache. Vomiting. Narcotic Withdrawal. Gastritis. Substance Abuse. Ankle Fracture. Back Pain. Abscess. Conjunctivitis. Anxiety Reaction. Impetigo. Concussion. Otitis Externa. Nasal Fracture. Carpal Tunnel Syndrome. Depression. --22:13 Maria Del Carmen Fatima R.N. ADDITIONAL SURGERIES: Fracture Repair. Hysterectomy. --22:13 Maria Del Carmen Fatima R.N. Interventions ID band on patient. To treatment room. --22: Maria Del Carmen Fatima R.N. PHYSICAL ASSESSMENT 22:03/29/17. Ambulatory to room. Patient gowned. GENERAL / NEURO / PSYCH: Alert. The patient does not appear to be in acute distress. Appears anxious. Oriented X 4. HEENT: Pupils equal, round and reactive to light. Mucous membranes are pink. RESPIRATORY: Respirations not labored. Breath sounds within normal limits. CVS: Capillary refill less than 2 seconds. Pulses within normal limits. GI / : Abdomen nontender. SKIN: Skin is warm, dry and non-tender. Normal skin turgor. Multiple oozing puncture wounds on the scalp. Skin tenderness present. --22:18 Maria Del Carmen Fatima R.N. NURSING PROGRESS NOTES 22:03/29/17. The plan of care for this patient has been created. Patient gowned. Head of bed elevated. Reassurance given. Two patient identifiers checked. Call light placed in reach. Side rails up x 1. Bed placed in lowest position. Brakes of bed on. Patient ready for evaluation- chart flagged and ED physician notified. --22:18 Maria Del Carmen Fatima R.N. 22:03/29/17. ( Patient keeps repeating she has "worms" in her head that has been there for two years). --22:22 Maria Del Carmen Fatima R.N. 23:09 03/29/17. ( Patient given ice water per request. Still waiting on physician, she was by the sink washing her hands stating she has been digging at her head.). --23:09 Maria Del Carmen Fatima R.N. DISPOSITION / DISCHARGE 23:51 03/29/17. Departure time: 23:50 Mar 29 2017. Condition at departure: unchanged. No learning barriers present. Discharge instructions provided and reviewed with the patient. Reviewed medication(s) side effects, precautions, dosing and course information. Prescription(s) given to the patient. Patient verbalized understanding. Written instructions provided in Turkish. The patient was discharged by the physician. She was discharged home. She left the Emergency Department ambulatory and via (ambulatory). --23:51 Maria Del Carmen Fatima R.N. 23:50 03/29/17. BP: 130/72. HR: 96. RR: 16. O2 saturation: 100% on room air. Temp: 98.2 F (oral). Pain level now: 06/20. --23:51 Maria Del Carmen Fatima R.N. Locked/Released at 03/29/2017 23:52 by Maria Del Carmen Fatima R.N.
--- NOTE | 2017-03-29 23:33 | ED NURSING NOTES ---
Clinical Report - Nurses [facility] [address] [place] [address] 03/29/2017 22:05 Patient: SHERYL AVERY TRIAGE Triage time 22:2016. Acuity: LEVEL 4. Chief Complaint: SKIN RASH and SKIN LESION and . two years ago, patient thinks there are worms in her scalp. 22:17 03/29/17. SEPSIS SCREEN: Sepsis Screen. Negative (no infection suspected/documented). PAU COMA SCORE: [place] Coma Scale: 15- eyes open spontaneously (4); best verbal response- oriented x 4 (5); best motor response- obeys commands (6). --22:17 Maria Del Carmen Fatima R.N. 22:11 03/29/17. BP: 135/78 (regular adult cuff) taken on the left arm, while sitting. HR: 103. RR: 18. O2 saturation: 97% on room air. Temp: 98.2 F (oral). Pain level now: 11/20. --22:17 Maria Del Carmen Fatima R.N. Weight: 61.2 kg stated. Height/Length: 64 inches Per Patient. BMI: 23.2. --22:14 Maria Del Carmen Fatima R.N. Medications Effexor XR Oral. --22:13 Maria Del Carmen Fatima R.N. LaMICtal Oral. --22:13 Maria Del Carmen Fatima R.N. Allergies None. --22:12 Maria Del Carmen Fatima R.N. History Arrived walking. Primary physician (DR Rinaldi). Reported as located on the scalp (cranium). Onset. (two years). It is described as itchy and painful. She has had itching. Treatment [employer]: None. PAST MEDICAL HX: The patient has had a hysterectomy. SOCIAL HX: Current every day light tobacco smoker- less than 1/2 a pack per day. No alcohol use or drug use. No infectious disease exposure. ABUSE ASSESSMENT: No report of abuse. SELF HARM ASSESSMENT: A self harm assessment was performed. The patient answered "no" to the question "Do you have thoughts of harming or killing yourself?" and "Have you recently had thoughts about harming or killing others?". --22:17 Maria Del Carmen Fatima R.N. PROBLEMS: Facial Cellulitis. Diarrhea. Abdominal Pain. Headache. Migraine Headache. Vomiting. Narcotic Withdrawal. Gastritis. Substance Abuse. Ankle Fracture. Back Pain. Abscess. Conjunctivitis. Anxiety Reaction. Impetigo. Concussion. Otitis Externa. Nasal Fracture. Carpal Tunnel Syndrome. Depression. --22:13 Maria Del Carmen Fatima R.N. ADDITIONAL SURGERIES: Fracture Repair. Hysterectomy. --22:13 Maria Del Carmen Fatima R.N. Interventions ID band on patient. To treatment room. --22: Maria Del Carmen Faitma R.N. PHYSICAL ASSESSMENT 22:03/29/17. Ambulatory to room. Patient gowned. GENERAL / NEURO / PSYCH: Alert. The patient does not appear to be in acute distress. Appears anxious. Oriented X 4. HEENT: Pupils equal, round and reactive to light. Mucous membranes are pink. RESPIRATORY: Respirations not labored. Breath sounds within normal limits. CVS: Capillary refill less than 2 seconds. Pulses within normal limits. GI / : Abdomen nontender. SKIN: Skin is warm, dry and non-tender. Normal skin turgor. Multiple oozing puncture wounds on the scalp. Skin tenderness present. --22:18 Maria Del Carmen Fatima R.N. NURSING PROGRESS NOTES 22:03/29/17. The plan of care for this patient has been created. Patient gowned. Head of bed elevated. Reassurance given. Two patient identifiers checked. Call light placed in reach. Side rails up x 1. Bed placed in lowest position. Brakes of bed on. Patient ready for evaluation- chart flagged and ED physician notified. --22:18 Maria Del Carmen Fatima R.N. 22:03/29/17. ( Patient keeps repeating she has "worms" in her head that has been there for two years). --22:22 Maria Del Carmen Fatima R.N. 23:09 03/29/17. ( Patient given ice water per request. Still waiting on physician, she was by the sink washing her hands stating she has been digging at her head.). --23:09 Maria Del Carmen Fatima R.N. DISPOSITION / DISCHARGE 23:51 03/29/17. Departure time: 23:50 Mar 29 2017. Condition at departure: unchanged. No learning barriers present. Discharge instructions provided and reviewed with the patient. Reviewed medication(s) side effects, precautions, dosing and course information. Prescription(s) given to the patient. Patient verbalized understanding. Written instructions provided in [place]. The patient was discharged by the physician. She was discharged home. She left the Emergency Department ambulatory and via (ambulatory). --23:51 Maria Del Carmen Fatima R.N. 23:50 03/29/17. BP: 130/72. HR: 96. RR: 16. O2 saturation: 100% on room air. Temp: 98.2 F (oral). Pain level now: 06/20. --23:51 Maria Del Carmen Fatima R.N. Locked/Released at 03/29/2017 23:52 by Maria Del Carmen Fatima R.N.
--- NOTE | 2017-03-31 08:59 | ED DISCHARGE INSTRUCTIONS ---
Patient: SHERYL AVERY General Instructions [facility] VisitID: [id number] [place] [address] 46y, F Registration Date/Time: 03/29/2017 Substance abuse problems: abuse of methamphetamine. Recurrent scalp lesions. INSTRUCTIONS Warnings: Further evaluation is necessary. Prescription Medications: Hydrocortisone 2.5% cream: apply to affected areas four times daily as needed for itching or rash. Dispense twenty (20) grams. No refills. Substitution is permissible. Bactrim DS 800 mg / 160 mg: Take 1 tablet orally every 12 hours for 7 days. Dispense fourteen (14). No refills. Substitution is permissible. Follow-up: Follow up with a acid pump operator. Call for the next available appointment. Understanding of the discharge instructions verbalized by patient. (Electronically signed by Jef Orellana MD 03/31/2017 8:59)
--- NOTE | 2017-03-31 08:59 | ED DISCHARGE INSTRUCTIONS ---
Patient: SHERYL AVERY General Instructions [facility] VisitID: [id number] [place] [address] 46y, F Registration Date/Time: 03/29/2017 Substance abuse problems: abuse of methamphetamine. Recurrent scalp lesions. INSTRUCTIONS Warnings: Further evaluation is necessary. Prescription Medications: Hydrocortisone 2.5% cream: apply to affected areas four times daily as needed for itching or rash. Dispense twenty (20) grams. No refills. Substitution is permissible. Bactrim DS 800 mg / 160 mg: Take 1 tablet orally every 12 hours for 7 days. Dispense fourteen (14). No refills. Substitution is permissible. Follow-up: Follow up with a link trainer operator. Call for the next available appointment. Understanding of the discharge instructions verbalized by patient. (Electronically signed by Jef Orellana MD 03/31/2017 8:59)
--- NOTE | 2017-03-31 08:59 | ED MED RECONCILIATION SUMMARY ---
Patient: SHERYL AVERY Medication Reconciliation Report [facility] VisitID: [id number] [address] [place] [address] 46y, F Registration Date/Time: 03/29/2017 Weight: 61.2 kg Height/Length: 64 in. BMI: 23.2 ALLERGIES: None The patient's Home Medications are listed below: THE FOLLOWING MEDICATIONS NEED TO BE RECONCILED: Effexor XR Oral LaMICtal Oral The source(s) of the original Home Medication information: Not obtained. The following Medications were given to the patient in the Emergency Department: None. The following Medications were prescribed to the patient: Hydrocortisone 2.5% cream: apply to affected areas four times daily as needed for itching or rash. Dispense twenty (20) grams. No refills. Substitution is permissible. -- Jef Orellana MD Bactrim DS 800 mg / 160 mg: Take 1 tablet orally every 12 hours for 7 days. Dispense fourteen (14). No refills. Substitution is permissible. -- Jef Orellana MD
--- NOTE | 2017-03-31 08:59 | ED MED RECONCILIATION SUMMARY ---
Patient: SHERYL AVERY Medication Reconciliation Report [facility] VisitID: [id number] [address] [place] [address] 46y, F Registration Date/Time: 03/29/2017 Weight: 61.2 kg Height/Length: 64 in. BMI: 23.2 ALLERGIES: None The patient's Home Medications are listed below: THE FOLLOWING MEDICATIONS NEED TO BE RECONCILED: Effexor XR Oral LaMICtal Oral The source(s) of the original Home Medication information: Not obtained. The following Medications were given to the patient in the Emergency Department: None. The following Medications were prescribed to the patient: Hydrocortisone 2.5% cream: apply to affected areas four times daily as needed for itching or rash. Dispense twenty (20) grams. No refills. Substitution is permissible. -- Jef Orellana MD Bactrim DS 800 mg / 160 mg: Take 1 tablet orally every 12 hours for 7 days. Dispense fourteen (14). No refills. Substitution is permissible. -- Jef Orellana MD
--- NOTE | 2017-03-31 08:59 | ED MAR SUMMARY ---
..... Medication Administration Record [facility] [address] [place], [place] [id number] Patient: SHERYL AVERY Timmy Visit ID: [id number] 46y, F Weight: 61.2 kg Height/Length: 64 in BMI: 23.2 ALLERGIES: None
--- NOTE | 2017-03-31 08:59 | ED MAR SUMMARY ---
..... Medication Administration Record [facility] [address] [place], [place] [id number] Patient: SHERYL AVERY Timmy Visit ID: [id number] 46y, F Weight: 61.2 kg Height/Length: 64 in BMI: 23.2 ALLERGIES: None
== END 2017-03-29 23:51 | disposition home or self-care (01) ==
LOC: ED SRH 22:04
DX: F15.10 Other stimulant abuse, uncomplicated (principal); L98.8 Other specified disorders of the skin and subcutaneous tissue; Z72.0 Tobacco use; Z79.899 Other long term (current) drug therapy